=== PATIENT | male | born 1945 | race Caucasian/White ===

== ENCOUNTER 2016-10-03 11:37 | Inpatient (IN) | payer MEDICARE ==
[~2016-10-03 11:37] MED LIST: ALTACE10 M4 PO; ASPIRIN325 M3 PO; ATIVAN2 M1 PO; CLARITIN10 M6 PO; CPAP; FLOMAX0.4 M1 PO; KRILL OIL PO; NORVASC10 M2 PO; PROBIOTIC1 EA10 PO; ROBITUSSIN15 M1 PO; ROXICODONE5 M2 PO; TOPROL XL200 M1 PO; TURMERIC COMPL1 EACH PO; TYLENOL325 M2 PO; ULTRAM50 M1 PO
[2016-10-03 12:53] LABS: INR 1.2 INR (0.9-1.1); PROTHROMBIN TIME 13.5 SECONDS (9.0-13.6)
[2016-10-04 06:02] LABS: BASO % 0.3 % (0-2); EOS % 2.9 % (0-7); EOSINOPHIL ABSOLUTE COUNT 0.3 tho/cmm (0.0-0.7); HCT-HEMATOCRIT 34.2 % (36.0-53.5); HGB-HEMOGLOBIN 11.8 gm/dl (13.5-17.0); IMMATURE GRANULOCYTES ABSOLUTE 0.02 tho/cmm (0-0.03); IMMATURE GRANULOCYTES PERCENT 0.2 % (0-0.3); LYMPH % 27.7 % (20-45); LYMPH ABSOLUTE COUNT 2.7 tho/cmm (0.8-4.5); MCH (MEAN CORPUSCULAR HGB) 29.6 pg (28.0-32.0); MCHC MEAN CORPUSCULAR HGB CONC 34.5 % (32.0-36.0); MCV (MEAN CELL VOLUME) 85.9 fl (82.0-96.0); MONO % 8.6 % (0-12); MONOCYTE ABSOLUTE COUNT 0.8 tho/cmm (0.0-1.2); NEUTROPHIL ABSOLUTE COUNT 5.8 tho/cmm (1.6-8.0); NEUTROPHIL-AUTOMATED 5.8 tho/cmm (1.6-8.0); NEUTROPHILS % 60.3 % (40-80); PLATELET COUNT 217 tho/cmm (150-450); RED BLOOD COUNT 3.98 mil/cmm (4.40-5.70); WHITE BLOOD COUNT 9.7 tho/cmm (4.0-10.0)
[2016-10-05] MEDS ORDERED: ASPIRIN325 M3 PO (12:58)
[2016-10-05] MEDS ORDERED: ULTRAM50 M1 PO (12:59)
[2016-10-05] MEDS ORDERED: ROXICODONE5 M2 PO (12:59)
[2016-10-05] MEDS ORDERED: TYLENOL325 M2 PO (13:00)
== END 2016-10-05 14:17 | disposition home health service (06) | DRG 470 ==
LOC: SHSC 11:37 → ORE 15:05 → PACU 17:32 → 5EA 18:29
PROVIDERS: Physician Assistant; ADMIT Orthopaedic Surgery Sports Medicine
PROC: 0SRC0J9 Replacement of Right Knee Joint with Synthetic Substitute, Cemented, Open Approach (ICD-10-PCS; principal; 2016-10-03)
DX: M17.11 Unilateral primary osteoarthritis, right knee (principal)
CPT/HCPCS: C1713; C1776; J0171; J0690; J1885; J2270; J2795